=== PATIENT | male | born 1935 | race Caucasian/White ===

== ENCOUNTER 2016-09-17 09:04 | Day surgery (SDC) | payer OTHER ==
--- NOTE | 2016-09-10 13:53 | HP ---
DATE OF SURGERY: 09/17/16. REASON FOR ADMISSION: Left inguinal hernia. BRIEF HISTORY: This is a 80-year-old gentleman who leads a very active lifestyle, still goes to the gym, lifts weights and so forth. He presented to my office with complaint of having a lump in the left groin. The patient states he has had this for quite some time and the lump has gotten a little larger. He now has occasional pain in the area and this pain is limiting him from fully living his active lifestyle, such as weightlifting. The patient is concerned that this is going to continue to get worse. He has had no nausea, no vomiting, no change in bowel habits. PAST MEDICAL HISTORY: No coronary disease, hypertension or diabetes. PAST SURGICAL HISTORY: Aortic valve replacement in 2014. Patient had an open right inguinal hernia repair (Snow). ALLERGIES: IODINE. MEDICATIONS: Crestor, Zetia, gabapentin and baby aspirin. SOCIAL HISTORY: He does not smoke or drink. PHYSICAL EXAMINATION: Lungs: Clear. Heart: Regular rhythm. Abdomen: Soft, nontender, nondistended. He has a well-healed right inguinal scar. No evidence of recurrence on the right. On the left, he has an obvious left inguinal hernia, reducible, nontender. Pelvic: Left scrotum and testicles within normal limits. IMPRESSION/PLAN: Left inguinal hernia. This is a 80-year-old gentleman who has had left groin pain and a lump. The patient clearly has a left inguinal hernia. At this time, he is symptomatic and wishes to have it repaired. We will plan for an open left inguinal hernia repair with mesh. The indications, alternatives and complications were discussed. Questions were answered. We will plan on consent the day of surgery. ONI SNOW M.D. [id number] cc: MD Josef Gilliland MD; [address] [place] [id number] [facility]
[2016-09-11 10:33] VITALS: BMI 22.6
[2016-09-17] MEDS ORDERED: TAMSULOSIN HCL 0.4 MG CAP.ER.24H (FP) ONE (09:29)
[2016-09-17] MEDS ORDERED: ROCURONIUM BROMIDE 50 MG/5 ML VIAL ONE (09:54)
[2016-09-17] MEDS ORDERED: PROPOFOL 20 ML ONE ×2 (09:54)
[2016-09-17] MEDS ORDERED: SUCCINYLCHOLINE CHLORIDE 200 MG/10 ML VIAL ONE ×2 (09:57)
[2016-09-17] MEDS ORDERED: MIDAZOLAM HCL 2 MG/2 ML SINGLE DOSE VIAL ONE (10:17)
[2016-09-17] MEDS ORDERED: DEXAMETHASONE SOD PHOSPHATE/PF 10 MG/ML SDV ONE (10:17)
[2016-09-17] MEDS ORDERED: oxyCODONE HCL 5 MG TABLET PO PRN ×2 (12:49)
[2016-09-17] MEDS ORDERED: ONDANSETRON 4 MG/2 ML VIAL IVPUSH PRN (12:49)
[2016-09-17] MEDS ORDERED: PROMETHAZINE HCL 25 MG/1 ML VIAL IVPUSH PRN (12:49)
[2016-09-17] MEDS ORDERED: LACTATED RINGERS SOLUTION 1,000 ML IV SCH (13:00)
[2016-09-17] MEDS ORDERED: ONDANSETRON 4 MG/2 ML VIAL ONE (13:20)
--- NOTE | 2016-09-17 14:23 | OP ---
DATE OF OPERATION: 09/17/2016 PREOPERATIVE DIAGNOSIS: Left inguinal hernia. POSTOPERATIVE DIAGNOSIS: Pantaloon left inguinal hernia, incarcerated, direct component with disruption at the lateral edge of the rectus. PROCEDURES: Open repair of left inguinal hernia with mesh, 8 cm intermediate wound closure. The hernia was incarcerated. SURGEON: Rafiq Saenz MD CAR SERVICER: Florencio Martell MD ANESTHESIA: Eden Torres MD (general). ESTIMATED BLOOD LOSS: Minimal. SPECIMEN: Left groin lymph node, hernia sac and cord lipoma. INDICATIONS FOR PROCEDURE: This is a 81-year-old gentleman who is becoming symptomatic from a known left inguinal hernia. The patient was identified and appropriately positioned on the operating room table. After the placement of general anesthesia, the abdomen prepped and draped in the usual sterile fashion with ChloraPrep. An 8 cm left inguinal incision was made, deepened through subcutaneous tissue. Sukhi's divided sharply. The fascia of the external oblique divided sharply through the external ring. The ilioinguinal nerve identified and retracted medially. The cord isolated at the pubic tubercle. The cord was subsequently skeletonized. There was a modest-sized lipoma which was clamped and then divided. There was a very small indirect inguinal hernia sac that was identified, suture ligated and reduced back into the preperitoneal space. The inguinal floor opened and the patient had a large direct inguinal hernia containing fat that was incarcerated. This fat was reduced back into the preperitoneal space with blunt dissection. There was another lump of fat just at the lateral edge of the rectus and this was down to the level of the fascia. It was obvious this gentleman had another tear at this level where he developed an incarcerated fat-containing hernia just at the edge of the left rectus. This fat reduced back into the preperitoneal space. A Marlex mesh plug placed into the preperitoneal space and the plug itself fanned beyond the tear in the lateral edge of the rectus. At the apex, the mesh was anchored to the pubic tubercle. Medially, it was anchored to the undersurface of the rectus at various points, as well as the obliques laterally. Laterally, the mesh was anchored to the iliopubic tract. The inguinal floor reconstructed in 2 layers with a running 2-0 Prolene suture. The internal ring was made to be snug. Next, a Marlex mesh patch placed on top of the inguinal floor as reinforcement and then anchored with interrupted 2-0 Prolene sutures, as well. The patch itself was keyholed to allow passage of the spermatic cord. The cord and nerve returned to its anatomic position. The fascia at the external oblique reapproximated with a running 3-0 Vicryl suture. The subcutaneous space irrigated. The operative field examined and noted to be hemostatic. Sukhi's reapproximated with interrupted inverted 3-0 Vicryl suture and the skin closed with a 4-0 subcuticular Biosyn followed by Dermabond. At the conclusion of the case, sponge count was correct. ATTESTATION: Brief OP note handwritten on the preprinted form. [facility] will be queried, prior to giving any narcotics, and will be done electronically. Length of incision 8 cm. cc: Zeke Hare [id number]
[2016-09-17 14:31] VITALS: BP 169/90; PULSE 66; TEMP 98.5
--- NOTE | 2016-09-18 12:01 | PATH ---
Surgical Pathology Report Patient Name: KARMEN PICKARD Med. Rec. #: [id number] /Age/Gender: 1935 (Age: 81) / M Account: [id number] Location: [facility] Taken: 09/17/2016 Received: 09/17/2016 Reported: 09/18/2016 Physicians: Rafiq Saenz Specimen(s) Received LEFT GROIN LYMPH NODE Clinical History Unilateral inguinal hernia, abdominal pain, history of cancer Final Diagnosis LYMPH NODE AND SOFT TISSUE, LEFT GROIN, EXCISION: BENIGN REACTIVE LYMPH NODE WITH MILD FOLLICULAR LYMPHOID HYPERPLASIA, ALONG WITH AREAS OF HYALINIZATION WITH FOCAL ASSOCIATED CALCIFICATION. NO LYMPHOMA OR METASTATIC CARCINOMA IDENTIFIED. BENIGN ADIPOSE TISSUE AND FIBROMEMBRANOUS TISSUE SUGGESTIVE OF HERNIA SAC CONTENTS PRESENT. Comment: Flow Cytometry performed and interpreted at [facility], [place], [place] ([id number]) shows the following: INTERPRETATION: NO CLONAL B-CELL OR ATYPICAL T-CELL POPULATION DETECTED. See [facility] report for additional details Electronically Signed Luther Tomlin M.D. Gross Description Received fresh labeled "left groin lymph node at internal ring," is a 1.0 x 0.7 x 0.6 cm sanchez, irregular lymph node with attached fat. Also received within the same container is a 6.0 x 3.5 x 1.0 cm aggregate of yellow red fibromembranous tissue and attached fat, possibly consistent with a hernia sac. The lymph node is bisected and a media sales representative portion is placed in RPMI solution and sent for flow cytometry. Echo Vascular Technologist sections are submitted in 4 cassettes as follows: 1-remainder of lymph node; 3-6-[id number] hernia sac. /09/17/2016 [facility]2016
== END 2016-09-17 14:30 | disposition home or self-care (01) ==
LOC: FASU 09:04
PROVIDERS: ATTEND Surgery
PROC: 0YU60JZ Supplement Left Inguinal Region with Synthetic Substitute, Open Approach (ICD-10-PCS; principal; 2016-09-17 11:16)
DX: K40.30 Unilateral inguinal hernia, with obstruction, without gangrene, not specified as recurrent (principal)
CPT/HCPCS: 88305-TC; 94760